=== PATIENT | female | born 1990 | race Two or more races ===

== ENCOUNTER 2017-01-01 17:14 | Inpatient (IN) | payer OTHER ==
[~2017-01-01] VITALS: Ht 154.9 cm; Wt 89.5 kg
[~2017-01-01 17:14] MED LIST: DOCU-109 PO; NAPR500T PO; OXYC-323 PO
[2017-01-01 17:39] LABS: BILIRUBIN,URINE NEGATIVE (NEG); GLUCOSE,URINE NEGATIVE (NEG); NITRITE,URINE NEGATIVE (NEG); PH,URINE 6.5; PROTEIN,URINE 100 mg/dL (NEG-TRACE); UROBILINOGEN,URINE 0.2 mg/dL (0.2 mg/dL)
--- NOTE | 2017-01-01 17:41 | PHYS DOC ---
Adult General Chief Complaint Chief Complaint: SHORTNESS OF BREATH HPI HPI Patient is a 26 year old F who presents with with increased shortness of breath and altered breathing that started this morning. Patient is 5 days for having a secondary to baby bradycardia down during labor. Patient released from the hospital on . Patient had an unremarkable no preeclampsia, no hypertension, no gestational diabetes. Patient has a JEB drain in place from her . Patient has no history of cardiac disease or PE or DVT. Patient states she's having increased with the walking from the couch the bathroom and notices that she is extremely short of breath and has increased respiratory rate. Patient denies any fevers. Patient states she's had increased swelling to her feet. Patient takes no medications currently. Pertinent exam findings: Heart is tachycardia with no murmurs Lungs decreased breath sounds bilaterally with tachypnea +2 pitting edema lower extremity bilaterally abdominal distention with incision looking clean dry and intact the JEB drain in place ED course: Patient was seen and examined CBC, CMP, troponin, BNP, EKG, UA, chest x-ray, CT angiogram was ordered, patient was 88% on room air therefore is placed on 2 L nasal cannula 1747: EKG shows sinus tach rate of 103 no STEMI 1930: On reexamination the patient is still tachypneic and having more difficulty breathing therefore the patient was placed on BiPAP, splint the patient we'll have to admit her to the hospital 1947: Discussed CC/HP/PMH with Dr. Mcdonald and recommends admit admitted to the [facility] with cardiology consult 1999: Discussed CC/HP/PMH with Dr. Hansen and recommends admit 40 mg of Lasix IV Pertinent results: Chest x-ray shows pulmonary edema CT angio IMPRESSION: 1. No CT evidence of central pulmonary emboli. 2. Bilateral patchy pulmonary infiltrates with interlobular septal thickening, most compatible with pulmonary edema. Pneumonia cannot be excluded. Small bilateral pleural effusions. BNP 599 Trop 0.054 MDM: After reviewing the chart, CC/HPI/PMH, physical exam, [lab results], [ radiological results], believe the patient has cardiomyopathy and is in acute failure with crying BiPAP and needs to be admitted hospital. Review of Systems Review of Systems GEN: Denies fevers, chills, sweats HEENT: Denies blurred vision, sore throat CV: Denies chest pain RESP: SOA GI: Denies n/v/d NEURO: Denies confusion, dizziness MSK: Denies weakness, joint pain/swelling Current Medications Current Medications Current Medications Medications (Trade) Dose Ordered Sig/Aaron Start Time Stop Time Status Last Admin Dose Admin Azithromycin 250 ml @ 250 mls/hr 1X ONCE 01/01/17 19:45 01/01/17 20:44 Ceftriaxone Sodium 1 gm/ Sodium Chloride 50 ml @ 100 mls/hr Q24H 01/02/17 18:00 Ceftriaxone Sodium 50 ml @ 100 mls/hr 1X ONCE 01/01/17 19:45 01/01/17 20:14 Info (Do NOT chart on this entry -- for MONITORING) 1 each PRN DAILY PRN 01/01/17 18:15 01/03/17 18:14 Iohexol (Omnipaque 300 Mg/ml) 75 ml 1X ONCE 01/01/17 18:00 01/01/17 18:02 DC 01/01/17 18:15 75 ML Morphine Sulfate 4 mg PRN Q2HR PRN 01/01/17 20:00 01/02/17 19:59 Ondansetron HCl (Zofran) 4 mg PRN Q8HRS PRN 01/01/17 20:00 01/02/17 19:59 Allergies Allergies Allergies Coded Allergies Type Severity Reaction Last Updated Verified No Known Drug Allergies 12/26/16 No Physical Exam Physical Exam GEN.: No apparent distress. Alert and oriented. HEENT: Head is normocephalic, atraumatic NECK: Supple. LUNGS: Decreased breath sounds bilaterally, tachypnea. HEART: [place], S1, S2 present. Peripheral pulses intact ABDOMEN: abdominal distention with incision looking clean dry and intact the JEB drain in place EXTREMITIES: Without any cyanosis. This 2 pitting edema to the extremity bilaterally NEUROLOGIC: Normal speech, normal tone PSYCHIATRIC: Normal affect, normal mood. SKIN: No ulcerations Current Patient Data Vital Signs Vital Signs Date Time Temp Pulse Resp B/P (MAP) Pulse Ox O2 Delivery O2 Flow Rate FiO2 01/01/17 19:30 116 25 129/76 (93) 96 Nasal Cannula 2.0 01/01/17 17:33 98.3 98.3 Lab Values Laboratory Tests Test 01/01/17 17:25 7/1/17 17:50 Urine Collection Type Unknown Urine Color [place] Urine Clarity Cloudy Urine pH 6.5 Urine Specific [place] <=1.005 Urine Protein 100 mg/dL (NEG-TRACE) Urine Glucose (UA) Negative mg/dL (NEG) Urine Ketones (Stick) Negative mg/dL (NEG) Urine Blood Large (NEG) Urine Nitrite Negative (NEG) Urine Bilirubin Negative (NEG) Urine Urobilinogen Dipstick 0.2 mg/dL (0.2 mg/dL) Urine Leukocyte Esterase Large (NEG) Urine RBC 20-40 /HPF (0-2) Urine WBC Tntc /HPF (0-4) Urine Squamous Epithelial Cells Many /LPF Urine Bacteria Many /HPF (0-FEW) Urine Mucus Mod /LPF White Blood Count 9.5 x10^3/uL (4.0-11.0) # Red Blood Count 3.50 x10^6/uL (3.50-5.40) Hemoglobin 8.2 g/dL (12.0-15.5) L Hematocrit 25.0 % (36.0-47.0) L Mean Corpuscular Volume 71 fL (79-100) L Mean Corpuscular Hemoglobin 24 pg (25-35) L Mean Corpuscular Hemoglobin Concent 33 g/dL (31-37) Red Cell Distribution Width 15.6 % (11.5-14.5) H Platelet Count 333 x10^3/uL (140-400) Neutrophils (%) (Auto) 79 % (31-73) H Lymphocytes (%) (Auto) 14 % (24-48) L Monocytes (%) (Auto) 6 % (0-9) Eosinophils (%) (Auto) 1 % (0-3) Basophils (%) (Auto) 0 % (0-3) Neutrophils # (Auto) 7.5 x10^3uL (1.8-7.7) Lymphocytes # (Auto) 1.3 x10^3/uL (1.0-4.8) Monocytes # (Auto) 0.6 x10^3/uL (0.0-1.1) Eosinophils # (Auto) 0.1 x10^3/uL (0.0-0.7) Basophils # (Auto) 0.0 x10^3/uL (0.0-0.2) Platelet Estimate Adequate (ADEQUATE) Polychromasia Slight Hypochromasia Slight Anisocytosis Slight Microcytosis Marked Sodium Level 144 mmol/L (136-145) Potassium Level 3.4 mmol/L (3.5-5.1) L Chloride Level 109 mmol/L (98-107) H Carbon Dioxide Level 24 mmol/L (21-32) Anion Gap 11 (6-14) Blood Urea Nitrogen 10 mg/dL (7-20) Creatinine 0.6 mg/dL (0.6-1.0) Estimated GFR (Cockcroft-Gault) 119.9 BUN/Creatinine Ratio 17 (6-20) Glucose Level 85 mg/dL (70-99) Calcium Level 8.1 mg/dL (8.5-10.1) L Total Bilirubin 0.3 mg/dL (0.2-1.0) Aspartate Amino Transferase (AST) 22 U/L (15-37) Alanine Aminotransferase (ALT) 16 U/L (14-59) Alkaline Phosphatase 95 U/L (46-116) Troponin I Quantitative 0.054 ng/mL (0.000-0.055) JT-Aby-R-Type Natriuretic Peptide 599 pg/mL (0-124) H Total Protein 6.7 g/dL (6.4-8.2) Albumin 2.6 g/dL (3.4-5.0) L Albumin/Globulin Ratio 0.6 (1.0-1.7) L Lipase 91 U/L (73-393) Laboratory Tests 01/01/17 17:50 Laboratory Tests 01/01/17 17:50 EKG EKG 1748: EKG shows sinus tach rate of 103 no STEMI[] Radiology/Procedures Radiology/Procedures CTA: IMPRESSION: 1. No CT evidence of central pulmonary emboli. 2. Bilateral patchy pulmonary infiltrates with interlobular septal thickening, most compatible with pulmonary edema. Pneumonia cannot be excluded. Small bilateral pleural effusions.[] Course & Med Decision Making Course & Med Decision Making Pertinent Labs and Imaging studies reviewed. (See chart for details) Critical care time was 35 minutes exclusive of procedures. [] Dragon Disclaimer Dragon Disclaimer This electronic medical record was generated, in whole or in part, using a voice recognition dictation system. Departure Departure Impression: Primary Impression: cardiomyopathy Disposition: 09 ADMITTED INPATIENT Admitting Physician: Other (Reusch) Condition: STABLE Referrals: NO PCP (PCP) MAREK LANDERS DO Jan 01, 2017 17:41
[2017-01-01 17:47] LABS: BACTERIA,URINE MANY /HPF (0-FEW); RBC,URINE 20-40 /HPF (0-2); SQUAMOUS EPITHELIAL CELL,UR MANY /LPF; WBC,URINE TNTC /HPF (0-4)
[2017-01-01] MEDS ORDERED: IOHEXOL 300 MG/ML 75 ML VIAL IV ONE (18:00)
[2017-01-01 18:02] LABS: BASO % 0 % (0-3); EOS % 1 % (0-3); HEMOGLOBIN 8.2 g/dL (12.0-15.5); LYMPH # 1.3 x10^3/uL (1.0-4.8); LYMPH % 14 % (24-48); MEAN CORPUSCULAR HEMOGLOBIN 24 pg (25-35); MEAN CORPUSCULAR HGB CONC 33 g/dL (31-37); MEAN CORPUSCULAR VOLUME 71 fL (79-100); MONO % 6 % (0-9); NEUT % 79 % (31-73); PLATELET COUNT 333 x10^3/uL (140-400); RED CELL DISTRIBUTION WIDTH 15.6 % (11.5-14.5); WHITE BLOOD COUNT 9.5 x10^3/uL (4.0-11.0)
[2017-01-01] MEDS ORDERED: CONTRAST GIVEN MC PRN (18:15)
[2017-01-01 18:20] LABS: ANISOCYTOSIS SLIGHT; HYPOCHROMIA SLIGHT; MICROCYTOSIS MARKED; PLT ESTIMATE ADEQUATE (ADEQUATE); POLYCHROMASIA SLIGHT
[2017-01-01 18:28] LABS: CALCIUM 8.1 mg/dL (8.5-10.1); CREATININE 0.6 mg/dL (0.6-1.0); GFR 119.9; POTASSIUM 3.4 mmol/L (3.5-5.1)
[2017-01-01 18:34] LABS: ALBUMIN 2.6 g/dL (3.4-5.0); ALBUMIN/GLOBULIN RATIO 0.6 (1.0-1.7); TOTAL BILIRUBIN 0.3 mg/dL (0.2-1.0); TOTAL PROTEIN 6.7 g/dL (6.4-8.2)
--- NOTE | 2017-01-01 18:41 | RAD ---
CTA of the chest with contrast, 01/01/2017: HISTORY: Shortness of breath, chest pain after a Multidetector CT imaging was performed following an IV bolus injection of iodinated contrast material. Multiplanar reconstructions were produced including coronal MIP images. The main, lobar and segmental pulmonary arteries are fairly well opacified and no filling defects are seen to suggest pulmonary emboli. Some of the smaller pulmonary arteries are less clearly defined. The thoracic aorta is of normal caliber. The heart is at the upper limits of normal in size. There is mild generalized thyroid enlargement. Small bilateral pleural effusions are present. There is interlobular septal thickening as well as patchy pulmonary infiltrates, right greater than left. These represent a combination of groundglass and slightly more dense scattered pulmonary opacities. The incompletely visualized spleen appears to be mildly prominent. IMPRESSION: 1. No CT evidence of central pulmonary emboli. 2. Bilateral patchy pulmonary infiltrates with interlobular septal thickening, most compatible with pulmonary edema. Pneumonia cannot be excluded. Small bilateral pleural effusions. Electronically signed by: Jaiden Hopper MD (01/01/2017 6:39 PM)
[2017-01-01] MEDS ORDERED: AZITHRMYCN 500MG IVPB FOR OMNI 250 ML IV ONE (19:45)
[2017-01-01] MEDS ORDERED: ONDANSETRON PF 4 MG/2 ML VIAL. IV PRN (20:00)
[2017-01-01] MEDS ORDERED: MORPHINE SULFATE 4 MG/ML DISP.SYRIN. IV PRN (20:00)
[2017-01-01] MEDS ORDERED: FUROSEMIDE 40 MG/4 ML VIAL. IVP ONE (20:00)
[2017-01-01 20:06] LABS: HCO3 ABG 21 mmol/L (21-28); PCO2 ABG 31 mmHg (35-46); PH ABG 7.46 (7.35-7.45); PO2 ABG 68 mmHg (85-108); SAT O2 ABG 92 % (92-99)
--- NOTE | 2017-01-01 21:02 | ACF ---
Admission Forms Criteria CARDIOLOGY GRG Clinical Indications for Admission to Inpatient Care ( Place 'X' for any and all applicable criteria): Hospital admission is needed for appropriate care of the patient because of ANY ONE of the following (1): [ ] I. Hemodynamic instability as indicated by ALL of the following (1)(2)(3) (4)(5) [ ]a) Vital signs or other findings not as expected for chronic patient condition or baseline [ ]b) Instability indicated by ANY ONE of the following: [ ]i) Hypotension [ ]ii) Symptomatic Tachycardia unresponsive to treatment ( e.g., analgesia, fluids, sedation as indicated) [ ]iii) Inadequate perfusion indicated by ANY ONE of the following: [ ] 1) Lactic acidosis (> 2 mmol/L) [ ] 2) New abnormal capillary refill (> 3 seconds) [ ] 3) Reduced urine output [ ] 4) New altered mental status [ ]iv) Orthostatic vital sign changes unresponsive to treatment (e.g., fluids) [ ]v) IV inotropic or vasopressor medication required to maintain adequate blood pressure or perfusion [ ] II. Severe heart failure as indicated by ANY ONE of the following(17)(18) [ ]a) Respiratory distress [ ]b) Hypotension [ ]c) Anasarca (refractory to outpatient therapy) [ ]d) Cardiac arrhythmias of immediate concern [ ]e) Myocardial ischemia [ ] III. Cardiac arrhythmias or findings of immediate concern indicated by ANY ONE of the following (19)(20): [ ] a) Heart rhythms that are inherently dangerous or unstable indicated by ANY ONE of the following (21)(22)(23): [ ] i) Resuscitated ventricular fibrillation or cardiac arrest [ ] ii) Ventricular escape rhythm [ ] iii) Sustained ventricular tachycardia (30 seconds or more of ventricular rhythm at greater than 100 beats per minute) [ ] iv) Nonsustained ventricular tachycardia and ANY ONE of the following: [ ] 1) Suspected cardiac ischemia as cause or consequence of ventricular tachycardia [ ] 2) In setting of acute myocarditis [ ] b) Unstable cardiac conduction defects indicated by ANY ONE of the following(23)(24)(25) [ ] i) Type II second-degree atrioventricular block [ ]ii) Third-degree atrioventricular block [ ]iii) New-onset left bundle branch block with suspected myocardial ischemia [ ]c) Any heart rhythm and ANY ONE of the following (21)(22)(26)(27) (28) [ ] i) Continuous long-term ECG monitoring needed (e.g., initiation of drug requiring monitoring for more than 24 hours) [ ] ii) Patient has automatic implanted cardioverter defibrillator that is repeatedly firing, malfunctioning, or in need of immediate adjustment of settings beyond the scope of ambulatory or observation care [ ]d) Heart rhythms of concern due to ANY ONE of the following: [ ] i) Hypotension [ ] ii) Respiratory distress [ ] iii) Association with other significant symptoms (e.g., bradycardia with syncope or ongoing dizziness, supraventricular tachycardia with chest pain (14)(15)(17) [ ] IV. Monitoring for cardiac contusion beyond the scope of observation care needed [A](30)(31)(32) [ ] V. Surgical or device complication (e.g., valve replacement complication , pacemaker dysfunction) (35)(41)(44)(45)(46) [ ] . Inpatient palliative care needed. [B](49) Also use Inpatient Palliative Care Criteria [ ] VII. Nonbacterial thrombotic (marantic) endocarditis (36)(43)(47)(48) [X] VIII. Cardiology condition, symptom, or finding for which emergency and observation care has failed or are not considered appropriate. [ ] IX. Acute valvular disease requiring inpatient as indicated by ANY ONE of the following (41) [ ]a) Acute valvular regurgitation (42) [ ]b) Noninfectious valvulitis (43) [ ]c) Obstructive valve thrombosis [ ]d) Paravalvular leak [ ]e) Other significant valvular disorder remaining after emergency or observation level of care (as appropriate) [ ]X. Pericardial disease requiring inpatient treatment as indicated by ANY ONE of the following (33)(34)(35)(36)(37) [ ]a) Suspected tamponade (38)(39)(40) [ ]b) Hemopericardium [ ]c) Other significant pericardial disorder remaining after emergency or observation level of care (as appropriate) [ ] XI. Cardiac ischemia beyond scope of emergency and observation care. [ ] XII. Hypertension requiring inpatient treatment as indicated by ANY ONE of the following (6)(7)(8) [ ]a) SBP greater than 220 mm Hg or DBP greater than 120 mmHg despite treatment [ ]b) SBP greater than 140 mm Hg or DBP greater than 100 mm Hg with evidence of acute end organ damage as indicated by ANY ONE of the following [ ] i) Encephalopathy [ ] ii) Acute renal failure as indicated by new onset of ANY ONE of the following (9)(10)(11)(12)(13) [ ]1) 3-fold rise in serum creatinine from baseline [ ]2) Serum creatinine greater than 4 mg/dL ( 354 micromoles/L) with acute rise greater than 0.5 mg/dL (44.2 micromoles/L) [ ]3) Reduction of more than 75% in estimated glomerular filtration rate from baseline [ ]4) Estimated glomerular filtration rate less than 35 mL/min/1.73m2 (0.59 mL/sec/1.73m2) in child up to 18 years of age [ ]5) Cessation of urine output indicated by ALL of the following [ ]A. Adequate volume status [ ]B. Inadequate urine output as indicated by ANY ONE of the following [ ]a. Urine output less than 0.3 mL/kg/hr for 24 hours [ ]b. Anuria (urine output less than 0.1 mL/kg/hr) for 12 hours [ ] iii) Aortic dissection [ ] iv) Myocardial Ischemia [ ] v) Left ventricular heart failure [ ]vi) Retinal Hemorrhage [ ]vii) Other significant finding [ ]c) Hypertension in child requiring inpatient treatment as indicated by ALL of the following(14)(15)(16) [ ] i) Outpatient treatment not effective, not available, or not appropriate [ ]ii) SBP or DBP greater than 95th percentile for age [ ]iii) Evidence of acute end organ damage as indicated by ANY ONE of the following [ ]1) Altered mental status [ ]2) Acute renal failure as indicated by new onset of ANY ONE of the following(9)(10)(11)(12)(13) [ ]A. 3-fold rise in serum creatinine from baseline [ ]B. Serum creatinine greater than 4 mg/dL (354 micromoles/L) with acute rise greater than 0.5 mg/dL (44.2 micromoles/L) [ ]C. Reduction of more than 75% in estimated glomerular filtration rate from baseline [ ]D. Estimated glomerular filtration rate less than 35 mL/min/1.73m2 (0.59 mL/sec/1.73m2) in child up to 18 years of age [ ]E. Cessation of urine output indicated by ALL of the following [ ]a. Adequate volume status [ ]b. Inadequate urine output as indicated by ANY ONE of the following [ ]i) Urine output less than 0.3 mL/kg/hr for 24 hours [ ]ii) Anuria ( urine output less than 0.1 mL/kg/hr) for 12 hours [ ]3) Severe headache [ ]4) Visual disturbance [ ]5) Retinal hemorrhage [ ]6) Other significant finding [ ]XIII. Complications of transplanted heart indicated by ANY ONE of the following(61): [ ]a) Acute graft rejection requiring inpatient management (eg, intravenous immunosuppression)(62)(63) [ ]b) Acute graft heart failure indicated by ANY ONE of the following(64): [ ]i) Hemodynamic instability [ ]ii) Cardiac arrhythmias of immediate concern [ ]iii) Pulmonary edema that is very severe (eg, mechanical ventilation needed, imminent or likely, need for 100% oxygen to keep oxygen saturation above 90%) [ ]iv) Pulmonary edema that is persistent as indicated by ALL of the following: [ ]1) New need for oxygen therapy to keep oxygen saturation above 90% (or increased FiO2 need from baseline) [ ]2) Has not improved sufficiently with emergency department or observation care IV diuretics or other heart failure treatments[E] [ ]v) Altered mental status that is severe or persistent [ ]vi) Increased creatinine (new on laboratory test) with reduction of more than 50% in estimated glomerular filtration rate from baseline [ ]vii) Progressively (ongoing) rising creatinine (known from past laboratory test) with reduction of more than 25% in estimated glomerular filtration rate from baseline [ ]viii) Acute renal failure [ ]ix) Acute peripheral ischemia (eg, examination shows pulseless, cool, mottled, or cyanotic extremity) [ ]x) Pulmonary artery catheter monitoring needed [ ]xi) Other sign or symptom of heart failure requiring inpatient treatment (ie, too severe or not responsive to outpatient and observation care treatment) [ ]c) Infection requiring inpatient management (eg, Hemodynamic instability, need for intravenous antimicrobial treatment)(66)(67)(68)(69)(70) [ ]d) Cardiac allograft vasculopathy requiring inpatient management ( eg evidence of cardiac ischemia)(71) [ ]e) Other complication of transplanted heart (eg, stroke, severe pulmonary hypertension, severe valvular dysfunction) requiring inpatient management(72) The original [facility] content created by [facility] has been revised. The portions of the content which have been revised are identified through the use of italic text or in bold, and [facility] has neither reviewed nor approved the modified material. All other unmodified content is copyright [facility]. Please see references footnoted in the original [facility] edition 2016 Admission Criteria Met?: Yes NIRALI PEREZ Jan 01, 2017 21:02
--- NOTE | 2017-01-01 21:09 | PDOC1 ---
History and Physical Date of Admission Date of Admission DATE: 01/01/17 TIME: 21:09 Identification/Chief Complaint Chief Complaint post cardiomyopathy Problems: Source Source: Patient History of Present Illness History of Present Illness Mrs Leos is a 38 y/o [place] without any medical issues, who delivered her first child by Cesarian 5 days ago. According to her, and delivery were uneventful. She went home, doing ok. She awoke this morning with increased work of breathing. She denies any cough or chest pain or palpitations , fevers, chill or nausea. [facility] over the past few days. In the ER, she was found with vascular congestion on CXR, as well as elevated proBNP and troponin. She is now admitted with a presumptive diagnosis of cardiomyopathy to [facility]. Past Medical History Past Medical History No medical history save for recent Past Surgical History Past Surgical History: Family History Family History: Heart Disease, Hypertension Social History Smoke: No ALCOHOL: none Drugs: None Current Problem List Problem List Problems Medical Problems: (1) cardiomyopathy Status: Acute Problems: Current Medications Current Medications Current Medications Iohexol (Omnipaque 300 Mg/ml) 75 ml 1X ONCE IV Last administered on 01/01/17t 18:15; Start 01/01/17 at 18:00; Stop 01/01/17 at 18:02; Status DC Info (Do NOT chart on this entry -- for MONITORING) 1 each PRN DAILY PRN MC SEE COMMENTS; Start 01/01/17 at 18:15; Stop 01/03/17 at 18:14 Ceftriaxone Sodium 1 gm/ Sodium Chloride 50 ml @ 100 mls/hr Q24H IV ; Start 01/01/17 at 19:45; Status Cancel Azithromycin 250 ml @ 250 mls/hr 1X ONCE IV ; Start 01/01/17 at 19:45; Stop 01/01/17 at 20:44; Status DC Ceftriaxone Sodium 1 gm/ Sodium Chloride 50 ml @ 100 mls/hr Q24H IV ; Start 01/02/17 at 18:00 Ceftriaxone Sodium 50 ml @ 100 mls/hr 1X ONCE IV Last administered on t 20:38; Start 01/01/17 at 19:45; Stop 01/01/17 at 20:14; Status DC Ondansetron HCl (Zofran) 4 mg PRN Q8HRS PRN IV NAUSEA/VOMITING; Start 01/01/17 at 20:00; Stop 01/02/17 at 19:59 Morphine Sulfate 4 mg PRN Q2HR PRN IV PAIN; Start 01/01/17 at 20:00; Stop at 19:59 Furosemide (Lasix) 40 mg 1X ONCE IVP Last administered on 01/01/17t 20:41; Start 01/01/17 at 20:00; Stop 01/01/17 at 20:03; Status DC Active Scripts Active Colace (Docusate Sodium) 100 Mg Capsule 1 Cap PO BID Percocet 5-325 Mg Tablet (Oxycodone/Acetaminophen) 1 Each Tablet 1-2 Tab PO Q4- 6HRS Naprosyn (Naproxen) 500 Mg Tablet 1 Tab PO BID Allergies Allergies: Coded Allergies: No Known Drug Allergies (Unverified , 12/26/16) ROS Review of System positive as per HPI. She deneis problems in rest of organ review Vitals Vitals Vital Signs Date Time Temp Pulse Resp B/P (MAP) Pulse Ox O2 Delivery O2 Flow Rate FiO2 01/01/17 20:34 108 26 152/97 (115) 95 Nasal Cannula 2.0 01/01/17 17:33 98.3 98.3 Labs Labs Laboratory Tests Test 01/01/17 17:25 01/01/17 17:50 01/01/17 20:00 Urine Collection Type Unknown Urine Color [place] Urine Clarity Cloudy Urine pH 6.5 Urine Specific [place] <=1.005 Urine Protein 100 mg/dL (NEG-TRACE) Urine Glucose (UA) Negative mg/dL (NEG) Urine Ketones (Stick) Negative mg/dL (NEG) Urine Blood Large (NEG) Urine Nitrite Negative (NEG) Urine Bilirubin Negative (NEG) Urine Urobilinogen Dipstick 0.2 mg/dL (0.2 mg/dL) Urine Leukocyte Esterase Large (NEG) Urine RBC 20-40 /HPF (0-2) Urine WBC Tntc /HPF (0-4) Urine Squamous Epithelial Cells Many /LPF Urine Bacteria Many /HPF (0-FEW) Urine Mucus Mod /LPF White Blood Count 9.5 x10^3/uL (4.0-11.0) Red Blood Count 3.50 x10^6/uL (3.50-5.40) Hemoglobin 8.2 g/dL (12.0-15.5) Hematocrit 25.0 % (36.0-47.0) Mean Corpuscular Volume 71 fL (79-100) Mean Corpuscular Hemoglobin 24 pg (25-35) Mean Corpuscular Hemoglobin Concent 33 g/dL (31-37) Red Cell Distribution Width 15.6 % (11.5-14.5) Platelet Count 333 x10^3/uL (140-400) Neutrophils (%) (Auto) 79 % (31-73) Lymphocytes (%) (Auto) 14 % (24-48) Monocytes (%) (Auto) 6 % (0-9) Eosinophils (%) (Auto) 1 % (0-3) Basophils (%) (Auto) 0 % (0-3) Neutrophils # (Auto) 7.5 x10^3uL (1.8-7.7) Lymphocytes # (Auto) 1.3 x10^3/uL (1.0-4.8) Monocytes # (Auto) 0.6 x10^3/uL (0.0-1.1) Eosinophils # (Auto) 0.1 x10^3/uL (0.0-0.7) Basophils # (Auto) 0.0 x10^3/uL (0.0-0.2) Platelet Estimate Adequate (ADEQUATE) Polychromasia Slight Hypochromasia Slight Anisocytosis Slight Microcytosis Marked Sodium Level 144 mmol/L (136-145) Potassium Level 3.4 mmol/L (3.5-5.1) Chloride Level 109 mmol/L (98-107) Carbon Dioxide Level 24 mmol/L (21-32) Anion Gap 11 (6-14) Blood Urea Nitrogen 10 mg/dL (7-20) Creatinine 0.6 mg/dL (0.6-1.0) Estimated GFR (Cockcroft-Gault) 119.9 BUN/Creatinine Ratio 17 (6-20) Glucose Level 85 mg/dL (70-99) Lactic Acid Level 1.0 mmol/L (0.4-2.0) Calcium Level 8.1 mg/dL (8.5-10.1) Total Bilirubin 0.3 mg/dL (0.2-1.0) Aspartate Amino Transf (AST/SGOT) 22 U/L (15-37) Alanine Aminotransferase (ALT/SGPT) 16 U/L (14-59) Alkaline Phosphatase 95 U/L (46-116) Troponin I Quantitative 0.054 ng/mL (0.000-0.055) KZ-Apm-N-Type Natriuretic Peptide 599 pg/mL (0-124) Total Protein 6.7 g/dL (6.4-8.2) Albumin 2.6 g/dL (3.4-5.0) Albumin/Globulin Ratio 0.6 (1.0-1.7) Lipase 91 U/L (73-393) O2 Saturation 92 % (92-99) Arterial Blood pH 7.46 (7.35-7.45) Arterial Blood pCO2 at Patient Temp 31 mmHg (35-46) Arterial Blood pO2 at Patient Temp 68 mmHg (85-108) Arterial Blood HCO3 21 mmol/L (21-28) Arterial Blood Base Excess -2 mmol/L (-3-3) Laboratory Tests Test 01/01/17 17:25 01/01/17 17:50 01/01/17 20:00 Urine Collection Type Unknown Urine Color [place] Urine Clarity Cloudy Urine pH 6.5 Urine Specific [place] <=1.005 Urine Protein 100 mg/dL (NEG-TRACE) Urine Glucose (UA) Negative mg/dL (NEG) Urine Ketones (Stick) Negative mg/dL (NEG) Urine Blood Large (NEG) Urine Nitrite Negative (NEG) Urine Bilirubin Negative (NEG) Urine Urobilinogen Dipstick 0.2 mg/dL (0.2 mg/dL) Urine Leukocyte Esterase Large (NEG) Urine RBC 20-40 /HPF (0-2) Urine WBC Tntc /HPF (0-4) Urine Squamous Epithelial Cells Many /LPF Urine Bacteria Many /HPF (0-FEW) Urine Mucus Mod /LPF White Blood Count 9.5 x10^3/uL (4.0-11.0) Red Blood Count 3.50 x10^6/uL (3.50-5.40) Hemoglobin 8.2 g/dL (12.0-15.5) Hematocrit 25.0 % (36.0-47.0) Mean Corpuscular Volume 71 fL (79-100) Mean Corpuscular Hemoglobin 24 pg (25-35) Mean Corpuscular Hemoglobin Concent 33 g/dL (31-37) Red Cell Distribution Width 15.6 % (11.5-14.5) Platelet Count 333 x10^3/uL (140-400) Neutrophils (%) (Auto) 79 % (31-73) Lymphocytes (%) (Auto) 14 % (24-48) Monocytes (%) (Auto) 6 % (0-9) Eosinophils (%) (Auto) 1 % (0-3) Basophils (%) (Auto) 0 % (0-3) Neutrophils # (Auto) 7.5 x10^3uL (1.8-7.7) Lymphocytes # (Auto) 1.3 x10^3/uL (1.0-4.8) Monocytes # (Auto) 0.6 x10^3/uL (0.0-1.1) Eosinophils # (Auto) 0.1 x10^3/uL (0.0-0.7) Basophils # (Auto) 0.0 x10^3/uL (0.0-0.2) Platelet Estimate Adequate (ADEQUATE) Polychromasia Slight Hypochromasia Slight Anisocytosis Slight Microcytosis Marked Sodium Level 144 mmol/L (136-145) Potassium Level 3.4 mmol/L (3.5-5.1) Chloride Level 109 mmol/L (98-107) Carbon Dioxide Level 24 mmol/L (21-32) Anion Gap 11 (6-14) Blood Urea Nitrogen 10 mg/dL (7-20) Creatinine 0.6 mg/dL (0.6-1.0) Estimated GFR (Cockcroft-Gault) 119.9 BUN/Creatinine Ratio 17 (6-20) Glucose Level 85 mg/dL (70-99) Lactic Acid Level 1.0 mmol/L (0.4-2.0) Calcium Level 8.1 mg/dL (8.5-10.1) Total Bilirubin 0.3 mg/dL (0.2-1.0) Aspartate Amino Transf (AST/SGOT) 22 U/L (15-37) Alanine Aminotransferase (ALT/SGPT) 16 U/L (14-59) Alkaline Phosphatase 95 U/L (46-116) Troponin I Quantitative 0.054 ng/mL (0.000-0.055) BT-Emb-B-Type Natriuretic Peptide 599 pg/mL (0-124) Total Protein 6.7 g/dL (6.4-8.2) Albumin 2.6 g/dL (3.4-5.0) Albumin/Globulin Ratio 0.6 (1.0-1.7) Lipase 91 U/L (73-393) O2 Saturation 92 % (92-99) Arterial Blood pH 7.46 (7.35-7.45) Arterial Blood pCO2 at Patient Temp 31 mmHg (35-46) Arterial Blood pO2 at Patient Temp 68 mmHg (85-108) Arterial Blood HCO3 21 mmol/L (21-28) Arterial Blood Base Excess -2 mmol/L (-3-3) VTE Prophylaxis Ordered VTE Prophylaxis Devices: No VTE Pharmacological Prophylaxi: Yes Assessment/Plan Assessment/Plan Mrs Leos is a 38 y/o [place] with cardiomyopathy. she is receiving IV lasix with good results. monitor closely in the CVC. cardiology consult will be obtained in the morning. Her potassium level is a tiny bit low prior to starting lasix treatment. Will replete aggressively, anticipating further drop with lasix. She actually has a wound vac over her incision. She was supposed to get is removed on Tue. obtain OB consult (Dr Berger) Condition: guarded. Prognosis: fair SEJAL GRAJEDA MD Jan 01, 2017 21:09
[2017-01-01 21:36] VITALS: BP 143/92
[2017-01-01 22:53] VITALS: BP 140/86
[2017-01-02] MEDS ORDERED: POTASSIUM CHLORIDE 20 MEQ TABLET.ER. PO ONE (00:15)
[2017-01-02] MEDS ORDERED: POTASSIUM CHLORIDE 10MEQ 100 ML IV SCH (00:30)
[2017-01-02] MEDS ORDERED: MAGNESIUM SULFATE 2GM 50 ML IV SCH ×2 (00:30→09:00)
[2017-01-02 03:36] VITALS: BP 141/94
[2017-01-02 07:00] VITALS: BP 146/100
[2017-01-02 08:16] LABS: BASO % 0 % (0-3); EOS % 1 % (0-3); HEMOGLOBIN 8.3 g/dL (12.0-15.5); LYMPH # 1.5 x10^3/uL (1.0-4.8); LYMPH % 13 % (24-48); MEAN CORPUSCULAR HEMOGLOBIN 24 pg (25-35); MEAN CORPUSCULAR HGB CONC 32 g/dL (31-37); MEAN CORPUSCULAR VOLUME 73 fL (79-100); MONO % 5 % (0-9); NEUT % 81 % (31-73); PLATELET COUNT 338 x10^3/uL (140-400); RED BLOOD COUNT 3.56 x10^6/uL (3.50-5.40); RED CELL DISTRIBUTION WIDTH 16.1 % (11.5-14.5); WHITE BLOOD COUNT 11.5 x10^3/uL (4.0-11.0)
[2017-01-02 08:50] LABS: CALCIUM 7.5 mg/dL (8.5-10.1); CREATININE 0.6 mg/dL (0.6-1.0); GFR 119.9; POTASSIUM 3.6 mmol/L (3.5-5.1)
[2017-01-02] MEDS ORDERED: POTASSIUM & SODIUM PHOSPHATES PACKET. PO SCH (09:00)
--- NOTE | 2017-01-02 09:16 | RAD ---
Portable chest, 01/01/2017: History: Shortness of breath The heart is mildly enlarged. The pulmonary vascularity is at the upper limits of normal. There is mild right basilar infiltrate partially obscuring the hemidiaphragm. Small pleural effusions evident on the subsequent CT study are not clearly visualized on this AP portable exam. There is no evidence of pneumothorax. IMPRESSION: 1. Mild cardiomegaly with borderline vascular congestion. 2. Mild right basilar infiltrate suggesting pneumonia versus pulmonary edema.
--- NOTE | 2017-01-02 10:34 | PDOC ---
PROGRESS NOTES Chief Complaint Chief Complaint SOB ASSESSMENT AND PLAN: 1. cardiomyopathy: cont IV lasix. echo pending. Dr Hansen to see 2. Hypokalemia: sl improved. replete aggressively with diuresis 3. Hypomagnesemia: new. replete IV 4. S/p last Mon, with wound vac in place. obtain OB consult (Dr Berger) Condition: guarded. Prognosis: fair Vitals Vitals Vital Signs Date Time Temp Pulse Resp B/P (MAP) Pulse Ox O2 Delivery O2 Flow Rate FiO2 01/02/17 07:00 98.3 102 18 146/100 (115) 96 Nasal Cannula 2.0 98.3 Physical Exam General: Alert, Oriented X3, Cooperative, No acute distress Heart: Regular rate Lungs: Clear Abdomen: Normal bowel sounds, Other ( abd with transverse , covered with wound vac) Extremities: Other (1+ LE edema) Labs LABS Laboratory Tests Test 01/01/17 17:25 01/01/17 17:50 01/01/17 20:00 01/01/17 22:30 Urine Collection Type Unknown Urine Color [place] Urine Clarity Cloudy Urine pH 6.5 Urine Specific [place] <=1.005 Urine Protein 100 mg/dL (NEG-TRACE) Urine Glucose (UA) Negative mg/dL (NEG) Urine Ketones (Stick) Negative mg/dL (NEG) Urine Blood Large (NEG) Urine Nitrite Negative (NEG) Urine Bilirubin Negative (NEG) Urine Urobilinogen Dipstick 0.2 mg/dL (0.2 mg/dL) Urine Leukocyte Esterase Large (NEG) Urine RBC 20-40 /HPF (0-2) Urine WBC Tntc /HPF (0-4) Urine Squamous Epithelial Cells Many /LPF Urine Bacteria Many /HPF (0-FEW) Urine Mucus Mod /LPF White Blood Count 9.5 x10^3/uL (4.0-11.0) Red Blood Count 3.50 x10^6/uL (3.50-5.40) Hemoglobin 8.2 g/dL (12.0-15.5) Hematocrit 25.0 % (36.0-47.0) Mean Corpuscular Volume 71 fL (79-100) Mean Corpuscular Hemoglobin 24 pg (25-35) Mean Corpuscular Hemoglobin Concent 33 g/dL (31-37) Red Cell Distribution Width 15.6 % (11.5-14.5) Platelet Count 333 x10^3/uL (140-400) Neutrophils (%) (Auto) 79 % (31-73) Lymphocytes (%) (Auto) 14 % (24-48) Monocytes (%) (Auto) 6 % (0-9) Eosinophils (%) (Auto) 1 % (0-3) Basophils (%) (Auto) 0 % (0-3) Neutrophils # (Auto) 7.5 x10^3uL (1.8-7.7) Lymphocytes # (Auto) 1.3 x10^3/uL (1.0-4.8) Monocytes # (Auto) 0.6 x10^3/uL (0.0-1.1) Eosinophils # (Auto) 0.1 x10^3/uL (0.0-0.7) Basophils # (Auto) 0.0 x10^3/uL (0.0-0.2) Platelet Estimate Adequate (ADEQUATE) Polychromasia Slight Hypochromasia Slight Anisocytosis Slight Microcytosis Marked Sodium Level 144 mmol/L (136-145) Potassium Level 3.4 mmol/L (3.5-5.1) Chloride Level 109 mmol/L (98-107) Carbon Dioxide Level 24 mmol/L (21-32) Anion Gap 11 (6-14) Blood Urea Nitrogen 10 mg/dL (7-20) Creatinine 0.6 mg/dL (0.6-1.0) Estimated GFR (Cockcroft-Gault) 119.9 BUN/Creatinine Ratio 17 (6-20) Glucose Level 85 mg/dL (70-99) Lactic Acid Level 1.0 mmol/L (0.4-2.0) 0.9 mmol/L (0.4-2.0) Calcium Level 8.1 mg/dL (8.5-10.1) Total Bilirubin 0.3 mg/dL (0.2-1.0) Aspartate Amino Transf (AST/SGOT) 22 U/L (15-37) Alanine Aminotransferase (ALT/SGPT) 16 U/L (14-59) Alkaline Phosphatase 95 U/L (46-116) Troponin I Quantitative 0.054 ng/mL (0.000-0.055) QW-Dav-R-Type Natriuretic Peptide 599 pg/mL (0-124) Total Protein 6.7 g/dL (6.4-8.2) Albumin 2.6 g/dL (3.4-5.0) Albumin/Globulin Ratio 0.6 (1.0-1.7) Lipase 91 U/L (73-393) O2 Saturation 92 % (92-99) Arterial Blood pH 7.46 (7.35-7.45) Arterial Blood pCO2 at Patient Temp 31 mmHg (35-46) Arterial Blood pO2 at Patient Temp 68 mmHg (85-108) Arterial Blood HCO3 21 mmol/L (21-28) Arterial Blood Base Excess -2 mmol/L (-3-3) Test 01/02/17 07:50 White Blood Count 11.5 x10^3/uL (4.0-11.0) Red Blood Count 3.56 x10^6/uL (3.50-5.40) Hemoglobin 8.3 g/dL (12.0-15.5) Hematocrit 26.0 % (36.0-47.0) Mean Corpuscular Volume 73 fL (79-100) Mean Corpuscular Hemoglobin 24 pg (25-35) Mean Corpuscular Hemoglobin Concent 32 g/dL (31-37) Red Cell Distribution Width 16.1 % (11.5-14.5) Platelet Count 338 x10^3/uL (140-400) Neutrophils (%) (Auto) 81 % (31-73) Lymphocytes (%) (Auto) 13 % (24-48) Monocytes (%) (Auto) 5 % (0-9) Eosinophils (%) (Auto) 1 % (0-3) Basophils (%) (Auto) 0 % (0-3) Neutrophils # (Auto) 9.4 x10^3uL (1.8-7.7) Lymphocytes # (Auto) 1.5 x10^3/uL (1.0-4.8) Monocytes # (Auto) 0.6 x10^3/uL (0.0-1.1) Eosinophils # (Auto) 0.1 x10^3/uL (0.0-0.7) Basophils # (Auto) 0.0 x10^3/uL (0.0-0.2) Sodium Level 141 mmol/L (136-145) Potassium Level 3.6 mmol/L (3.5-5.1) Chloride Level 109 mmol/L (98-107) Carbon Dioxide Level 25 mmol/L (21-32) Anion Gap 7 (6-14) Blood Urea Nitrogen 11 mg/dL (7-20) Creatinine 0.6 mg/dL (0.6-1.0) Estimated GFR (Cockcroft-Gault) 119.9 Glucose Level 79 mg/dL (70-99) Calcium Level 7.5 mg/dL (8.5-10.1) Phosphorus Level 3.6 mg/dL (2.6-4.7) Magnesium Level 1.7 mg/dL (1.8-2.4) Troponin I Quantitative 0.060 ng/mL (0.000-0.055) SEJAL GRAJEDA MD Jan 02, 2017 10:34
[2017-01-02 11:00] VITALS: BP 153/83
--- NOTE | 2017-01-02 11:42 | EKG ---
[facility] [address] [place] [address] Test Date: 2017-01-01 Test Time: 17:45:26 Pat Name: MITESH DAMON Department: Room: 208 1 Gender: F Muffler Installer: SHAYE : 1990 Requested By: MAREK LANDERS Order Number: [id number] Reading MD: Mack Nayak Measurements Intervals [place] Rate: 103 P: 37 MO: 144 QRS: 52 QRSD: 86 T: 31 QT: 344 QTc: 453 Interpretive Statements SINUS TACHYCARDIA QRS(T) CONTOUR ABNORMALITY POSSIBLY ABNORMAL ECG RI6.01 No previous ECG available for comparison Electronically Signed On 01-02-2017 15:50:41 CDT by Mack Nayak
--- NOTE | 2017-01-02 13:53 | PDOC2 ---
CONSULT Date of Consult Date of Consult DATE: 01/02/17 TIME: 13:47 Reason for Consult Reason for Consult: Probable heart failure Referring Physician Referring Physician: Dr. Mcdonald Identification/Chief Complaint Chief Complaint Shortness of breath Problems: Source Source: Patient History of Present Illness Reason for Visit: The patient is a 26-year-old female 5 days status post her first . Patient reported a non-complicated and a C section delivery. She had been doing well until yesterday morning when she developed increasing shortness of breath. She had no chest pain. She came to the emergency room and initial evaluation included a CT scan that showed no pulmonary emboli but probable pulmonary edema. Troponin level was 0.06. Potassium 3.6. Magnesium 1.7. EKG showed a sinus tachycardia with nonspecific ST-T wave changes. Patient was treated with Lasix and overnight the patient is feeling much better. She denies any history of heart failure, cardiac arrhythmias or coronary artery disease. She denies any family history of cardiomyopathy. Past Medical History Cardiovascular: HTN Past Surgical History Past Surgical History: Family History Family History: Heart Disease, Hypertension Social History No ALCOHOL: none Drugs: None Current Problem List Problem List Problems Medical Problems: (1) cardiomyopathy Status: Acute Current Medications Current Medications Current Medications Iohexol (Omnipaque 300 Mg/ml) 75 ml 1X ONCE IV Last administered on 01/01/17 18:15; Start 01/01/17 at 18:00; Stop 01/01/17 at 18:02; Status DC Info (Do NOT chart on this entry -- for MONITORING) 1 each PRN DAILY PRN MC SEE COMMENTS; Start 01/01/17 at 18:15; Stop 01/03/17 at 18:14 Ceftriaxone Sodium 1 gm/ Sodium Chloride 50 ml @ 100 mls/hr Q24H IV ; Start 01/01/17 at 19:45; Status Cancel Azithromycin 250 ml @ 250 mls/hr 1X ONCE IV Last administered on 01/02/17 00: 54; Start 01/01/17 at 19:45; Stop 01/01/17 at 20:44; Status DC Ceftriaxone Sodium 1 gm/ Sodium Chloride 50 ml @ 100 mls/hr Q24H IV ; Start 01/02/17 at 18:00 Ceftriaxone Sodium 50 ml @ 100 mls/hr 1X ONCE IV Last administered on 20:38; Start 01/01/17 at 19:45; Stop 01/01/17 at 20:14; Status DC Ondansetron HCl (Zofran) 4 mg PRN Q8HRS PRN IV NAUSEA/VOMITING; Start 01/01/17 at 20:00; Stop 01/02/17 at 19:59 Morphine Sulfate 4 mg PRN Q2HR PRN IV PAIN; Start 01/01/17 at 20:00; Stop at 19:59 Furosemide (Lasix) 40 mg 1X ONCE IVP Last administered on 01/01/17 20:41; Start 01/01/17 at 20:00; Stop 01/01/17 at 20:03; Status DC Potassium Chloride (Klor-Con) 40 meq 1X ONCE PO Last administered on 01/02/17 00:54; Start 01/02/17 at 00:15; Stop 01/02/17 at 00:16; Status DC Potassium Chloride 100 ml @ 100 mls/hr Q1H IV ; Start 01/02/17 at 00:30; Stop at 00:41; Status DC Magnesium Sulfate/ Dextrose 50 ml @ 25 mls/hr Q24H IV ; Start 01/02/17 at 00:30; Stop 01/02/17 at 00:46; Status DC Potassium Phos/ Sodium Phos (Phos-Nak) 1 pkt BID PO ; Start 01/02/17 at 09:00; Stop 01/02/17 at 21:01 Magnesium Sulfate/ Dextrose 50 ml @ 25 mls/hr Q24H IV Last administered on 12:36; Start 01/02/17 at 09:00; Stop 01/04/17 at 10:59 Active Scripts Active Colace (Docusate Sodium) 100 Mg Capsule 1 Cap PO BID Percocet 5-325 Mg Tablet (Oxycodone/Acetaminophen) 1 Each Tablet 1-2 Tab PO Q4- 6HRS Naprosyn (Naproxen) 500 Mg Tablet 1 Tab PO BID Allergies Allergies: Coded Allergies: No Known Drug Allergies (Unverified , 12/26/16) ROS General: YES: Fatigue Respiratory: YES: Shortness of breath, SOB with excertion Physical Exam General: mild distress HEENT: Atraumatic Lungs: Other (bilaterally mildly decreased breath sounds) Heart: Regular rate Abdomen: Normal bowel sounds Vitals VITALS Vital Signs Date Time Temp Pulse Resp B/P (MAP) Pulse Ox O2 Delivery O2 Flow Rate FiO2 01/02/17 11:00 98.5 96 20 153/83 (106) 97 Nasal Cannula 2.0 98.5 Labs Labs Laboratory Tests Test 01/01/17 17:25 01/01/17 17:50 01/01/17 20:00 01/01/17 22:30 Urine Collection Type Unknown Urine Color [place] Urine Clarity Cloudy Urine pH 6.5 Urine Specific [place] <=1.005 Urine Protein 100 mg/dL (NEG-TRACE) Urine Glucose (UA) Negative mg/dL (NEG) Urine Ketones (Stick) Negative mg/dL (NEG) Urine Blood Large (NEG) Urine Nitrite Negative (NEG) Urine Bilirubin Negative (NEG) Urine Urobilinogen Dipstick 0.2 mg/dL (0.2 mg/dL) Urine Leukocyte Esterase Large (NEG) Urine RBC 20-40 /HPF (0-2) Urine WBC Tntc /HPF (0-4) Urine Squamous Epithelial Cells Many /LPF Urine Bacteria Many /HPF (0-FEW) Urine Mucus Mod /LPF White Blood Count 9.5 x10^3/uL (4.0-11.0) Red Blood Count 3.50 x10^6/uL (3.50-5.40) Hemoglobin 8.2 g/dL (12.0-15.5) Hematocrit 25.0 % (36.0-47.0) Mean Corpuscular Volume 71 fL (79-100) Mean Corpuscular Hemoglobin 24 pg (25-35) Mean Corpuscular Hemoglobin Concent 33 g/dL (31-37) Red Cell Distribution Width 15.6 % (11.5-14.5) Platelet Count 333 x10^3/uL (140-400) Neutrophils (%) (Auto) 79 % (31-73) Lymphocytes (%) (Auto) 14 % (24-48) Monocytes (%) (Auto) 6 % (0-9) Eosinophils (%) (Auto) 1 % (0-3) Basophils (%) (Auto) 0 % (0-3) Neutrophils # (Auto) 7.5 x10^3uL (1.8-7.7) Lymphocytes # (Auto) 1.3 x10^3/uL (1.0-4.8) Monocytes # (Auto) 0.6 x10^3/uL (0.0-1.1) Eosinophils # (Auto) 0.1 x10^3/uL (0.0-0.7) Basophils # (Auto) 0.0 x10^3/uL (0.0-0.2) Platelet Estimate Adequate (ADEQUATE) Polychromasia Slight Hypochromasia Slight Anisocytosis Slight Microcytosis Marked Sodium Level 144 mmol/L (136-145) Potassium Level 3.4 mmol/L (3.5-5.1) Chloride Level 109 mmol/L (98-107) Carbon Dioxide Level 24 mmol/L (21-32) Anion Gap 11 (6-14) Blood Urea Nitrogen 10 mg/dL (7-20) Creatinine 0.6 mg/dL (0.6-1.0) Estimated GFR (Cockcroft-Gault) 119.9 BUN/Creatinine Ratio 17 (6-20) Glucose Level 85 mg/dL (70-99) Lactic Acid Level 1.0 mmol/L (0.4-2.0) 0.9 mmol/L (0.4-2.0) Calcium Level 8.1 mg/dL (8.5-10.1) Total Bilirubin 0.3 mg/dL (0.2-1.0) Aspartate Amino Transf (AST/SGOT) 22 U/L (15-37) Alanine Aminotransferase (ALT/SGPT) 16 U/L (14-59) Alkaline Phosphatase 95 U/L (46-116) Troponin I Quantitative 0.054 ng/mL (0.000-0.055) IF-Sqh-T-Type Natriuretic Peptide 599 pg/mL (0-124) Total Protein 6.7 g/dL (6.4-8.2) Albumin 2.6 g/dL (3.4-5.0) Albumin/Globulin Ratio 0.6 (1.0-1.7) Lipase 91 U/L (73-393) O2 Saturation 92 % (92-99) Arterial Blood pH 7.46 (7.35-7.45) Arterial Blood pCO2 at Patient Temp 31 mmHg (35-46) Arterial Blood pO2 at Patient Temp 68 mmHg (85-108) Arterial Blood HCO3 21 mmol/L (21-28) Arterial Blood Base Excess -2 mmol/L (-3-3) Test 01/02/17 07:50 White Blood Count 11.5 x10^3/uL (4.0-11.0) Red Blood Count 3.56 x10^6/uL (3.50-5.40) Hemoglobin 8.3 g/dL (12.0-15.5) Hematocrit 26.0 % (36.0-47.0) Mean Corpuscular Volume 73 fL (79-100) Mean Corpuscular Hemoglobin 24 pg (25-35) Mean Corpuscular Hemoglobin Concent 32 g/dL (31-37) Red Cell Distribution Width 16.1 % (11.5-14.5) Platelet Count 338 x10^3/uL (140-400) Neutrophils (%) (Auto) 81 % (31-73) Lymphocytes (%) (Auto) 13 % (24-48) Monocytes (%) (Auto) 5 % (0-9) Eosinophils (%) (Auto) 1 % (0-3) Basophils (%) (Auto) 0 % (0-3) Neutrophils # (Auto) 9.4 x10^3uL (1.8-7.7) Lymphocytes # (Auto) 1.5 x10^3/uL (1.0-4.8) Monocytes # (Auto) 0.6 x10^3/uL (0.0-1.1) Eosinophils # (Auto) 0.1 x10^3/uL (0.0-0.7) Basophils # (Auto) 0.0 x10^3/uL (0.0-0.2) Sodium Level 141 mmol/L (136-145) Potassium Level 3.6 mmol/L (3.5-5.1) Chloride Level 109 mmol/L (98-107) Carbon Dioxide Level 25 mmol/L (21-32) Anion Gap 7 (6-14) Blood Urea Nitrogen 11 mg/dL (7-20) Creatinine 0.6 mg/dL (0.6-1.0) Estimated GFR (Cockcroft-Gault) 119.9 Glucose Level 79 mg/dL (70-99) Calcium Level 7.5 mg/dL (8.5-10.1) Phosphorus Level 3.6 mg/dL (2.6-4.7) Magnesium Level 1.7 mg/dL (1.8-2.4) Troponin I Quantitative 0.060 ng/mL (0.000-0.055) Laboratory Tests Test 01/01/17 17:25 01/01/17 17:50 01/01/17 20:00 01/01/17 22:30 Urine Collection Type Unknown Urine Color [place] Urine Clarity Cloudy Urine pH 6.5 Urine Specific [place] <=1.005 Urine Protein 100 mg/dL (NEG-TRACE) Urine Glucose (UA) Negative mg/dL (NEG) Urine Ketones (Stick) Negative mg/dL (NEG) Urine Blood Large (NEG) Urine Nitrite Negative (NEG) Urine Bilirubin Negative (NEG) Urine Urobilinogen Dipstick 0.2 mg/dL (0.2 mg/dL) Urine Leukocyte Esterase Large (NEG) Urine RBC 20-40 /HPF (0-2) Urine WBC Tntc /HPF (0-4) Urine Squamous Epithelial Cells Many /LPF Urine Bacteria Many /HPF (0-FEW) Urine Mucus Mod /LPF White Blood Count 9.5 x10^3/uL (4.0-11.0) Red Blood Count 3.50 x10^6/uL (3.50-5.40) Hemoglobin 8.2 g/dL (12.0-15.5) Hematocrit 25.0 % (36.0-47.0) Mean Corpuscular Volume 71 fL (79-100) Mean Corpuscular Hemoglobin 24 pg (25-35) Mean Corpuscular Hemoglobin Concent 33 g/dL (31-37) Red Cell Distribution Width 15.6 % (11.5-14.5) Platelet Count 333 x10^3/uL (140-400) Neutrophils (%) (Auto) 79 % (31-73) Lymphocytes (%) (Auto) 14 % (24-48) Monocytes (%) (Auto) 6 % (0-9) Eosinophils (%) (Auto) 1 % (0-3) Basophils (%) (Auto) 0 % (0-3) Neutrophils # (Auto) 7.5 x10^3uL (1.8-7.7) Lymphocytes # (Auto) 1.3 x10^3/uL (1.0-4.8) Monocytes # (Auto) 0.6 x10^3/uL (0.0-1.1) Eosinophils # (Auto) 0.1 x10^3/uL (0.0-0.7) Basophils # (Auto) 0.0 x10^3/uL (0.0-0.2) Platelet Estimate Adequate (ADEQUATE) Polychromasia Slight Hypochromasia Slight Anisocytosis Slight Microcytosis Marked Sodium Level 144 mmol/L (136-145) Potassium Level 3.4 mmol/L (3.5-5.1) Chloride Level 109 mmol/L (98-107) Carbon Dioxide Level 24 mmol/L (21-32) Anion Gap 11 (6-14) Blood Urea Nitrogen 10 mg/dL (7-20) Creatinine 0.6 mg/dL (0.6-1.0) Estimated GFR (Cockcroft-Gault) 119.9 BUN/Creatinine Ratio 17 (6-20) Glucose Level 85 mg/dL (70-99) Lactic Acid Level 1.0 mmol/L (0.4-2.0) 0.9 mmol/L (0.4-2.0) Calcium Level 8.1 mg/dL (8.5-10.1) Total Bilirubin 0.3 mg/dL (0.2-1.0) Aspartate Amino Transf (AST/SGOT) 22 U/L (15-37) Alanine Aminotransferase (ALT/SGPT) 16 U/L (14-59) Alkaline Phosphatase 95 U/L (46-116) Troponin I Quantitative 0.054 ng/mL (0.000-0.055) YB-Iuw-O-Type Natriuretic Peptide 599 pg/mL (0-124) Total Protein 6.7 g/dL (6.4-8.2) Albumin 2.6 g/dL (3.4-5.0) Albumin/Globulin Ratio 0.6 (1.0-1.7) Lipase 91 U/L (73-393) O2 Saturation 92 % (92-99) Arterial Blood pH 7.46 (7.35-7.45) Arterial Blood pCO2 at Patient Temp 31 mmHg (35-46) Arterial Blood pO2 at Patient Temp 68 mmHg (85-108) Arterial Blood HCO3 21 mmol/L (21-28) Arterial Blood Base Excess -2 mmol/L (-3-3) Test 01/02/17 07:50 White Blood Count 11.5 x10^3/uL (4.0-11.0) Red Blood Count 3.56 x10^6/uL (3.50-5.40) Hemoglobin 8.3 g/dL (12.0-15.5) Hematocrit 26.0 % (36.0-47.0) Mean Corpuscular Volume 73 fL (79-100) Mean Corpuscular Hemoglobin 24 pg (25-35) Mean Corpuscular Hemoglobin Concent 32 g/dL (31-37) Red Cell Distribution Width 16.1 % (11.5-14.5) Platelet Count 338 x10^3/uL (140-400) Neutrophils (%) (Auto) 81 % (31-73) Lymphocytes (%) (Auto) 13 % (24-48) Monocytes (%) (Auto) 5 % (0-9) Eosinophils (%) (Auto) 1 % (0-3) Basophils (%) (Auto) 0 % (0-3) Neutrophils # (Auto) 9.4 x10^3uL (1.8-7.7) Lymphocytes # (Auto) 1.5 x10^3/uL (1.0-4.8) Monocytes # (Auto) 0.6 x10^3/uL (0.0-1.1) Eosinophils # (Auto) 0.1 x10^3/uL (0.0-0.7) Basophils # (Auto) 0.0 x10^3/uL (0.0-0.2) Sodium Level 141 mmol/L (136-145) Potassium Level 3.6 mmol/L (3.5-5.1) Chloride Level 109 mmol/L (98-107) Carbon Dioxide Level 25 mmol/L (21-32) Anion Gap 7 (6-14) Blood Urea Nitrogen 11 mg/dL (7-20) Creatinine 0.6 mg/dL (0.6-1.0) Estimated GFR (Cockcroft-Gault) 119.9 Glucose Level 79 mg/dL (70-99) Calcium Level 7.5 mg/dL (8.5-10.1) Phosphorus Level 3.6 mg/dL (2.6-4.7) Magnesium Level 1.7 mg/dL (1.8-2.4) Troponin I Quantitative 0.060 ng/mL (0.000-0.055) Images Images CT scan shows normal pulmonary emboli. It does show probable pulmonary edema. Assessment/Plan Assessment/Plan 1. Heart failure probably secondary to cardiomyopathy. Patient is significantly improved with Lasix. CT scan shows no evidence of pulmonary emboli. At this time will continue on Lasix and close monitoring. We'll check an echocardiogram today. Possibility of cardiomyopathy was discussed with the patient. 2. Status post delivery 5 days ago. Patient overall is doing well. Thank you for allowing us to participate in the care of your pleasant patient. KAITLIN DAVIES MD Jan 02, 2017 13:53
[2017-01-02 15:00] VITALS: BP 146/94
[2017-01-02] MEDS: FUROSEMIDE 20 MG/2 ML VIAL. IVP SCH (15:28)
[2017-01-02] MEDS: oxyCODONE/APAP 5/325 1 TAB TABLET PO PRN ×2 (15:29→19:45)
--- NOTE | 2017-01-02 15:40 | CARD ---
APPROVED REPORT EXAM: Two-dimensional and M-mode echocardiogram with Doppler and color Doppler. Other Information Quality : GoodHR: 104bpm Rhythm : Tachycardia INDICATION SOA, Tachycardia 2D DIMENSIONS RVDd2.9 (2.9-3.5cm)Left Atrium(2D)4.8 (1.6-4.0cm) IVSd0.9 (0.7-1.1cm)Aortic Root(2D)3.5 (2.0-3.7cm) LVDd6.0 (3.9-5.9cm)LVOT Diameter2.3 (1.8-2.4cm) PWd0.9 (0.7-1.1cm)LVDs4.9 (2.5-4.0cm) FS (%) 19.2 %SV70.5 ml Mitral Valve MV E Chigmlgr922.1cm/sMV E Peak Gr.6mmHg MV DECEL [id number] A Zgxflbzh238.2cm/s MV E Mean Gr.3mmHgE/A Ratio1.2 MV A [id number] Pulmonary Valve PV Peak Ihagovtv717.8cm/s Pulmonary Vein S1 Xlmdnjwa80.7cm/sD2 Nbukebzi62.7cm/s LEFT VENTRICLE The Left Ventricle is mildly dilated. There is normal left ventricular wall thickness. Left ventricle systolic function is mildly impaired. The Ejection Fraction is estimated at 40%. There is mild globa l hypokinesis of the left ventricle. The left ventricular diastolic function and filling is normal fo r age. No left ventricle thrombus noted on this study. RIGHT VENTRICLE The right ventricle is normal size. There is normal right ventricular wall thickness. The right ventr icular systolic function is normal. ATRIA The left atrium is mildly dilated. The right atrium size is normal. The interatrial septum is intact with no evidence for an atrial septal defect or patent foramen ovale as noted on 2-D or Doppler imagi ng. AORTIC VALVE The aortic valve is normal in structure and function. The aortic valve is trileaflet. Doppler and Col or Flow revealed no significant aortic regurgitation. There is no significant aortic valvular stenosi s. MITRAL VALVE There is no evidence of mitral valve prolapse. There is no mitral valve stenosis. Doppler and Color F low revealed mild mitral regurgitation. TRICUSPID VALVE Doppler and Color Flow revealed trace tricuspid valve regurgitation. PULMONIC VALVE Doppler and Color Flow revealed mild pulmonic valvular regurgitation. There is no pulmonic valvular s tenosis. GREAT VESSELS The aortic root is mildly enlarged. The ascending aorta is midly dilated. The pulmonary artery is nor mal. The IVC is normal in size and collapses >50% with inspiration. PERICARDIAL EFFUSION There is no evidence of significant pericardial effusion. Critical Notification Critical Value: No <Conclusion> The Left Ventricle is mildly dilated. Left ventricle systolic function is mildly impaired. The Ejection Fraction is estimated at 40%. There is mild global hypokinesis of the left ventricle. There is no significant aortic valvular stenosis. Doppler and Color Flow revealed no significant aortic regurgitation. Doppler and Color Flow revealed mild mitral regurgitation. Doppler and Color Flow revealed trace tricuspid valve regurgitation. Doppler and Color Flow revealed mild pulmonic valvular regurgitation. The aortic root is mildly enlarged. There is no evidence of significant pericardial effusion.
[2017-01-02] MEDS: POTASSIUM CHLORIDE 20 MEQ TABLET.ER. PO SCH (18:27)
[2017-01-02 19:15] VITALS: BP 132/88
[2017-01-02 22:57] VITALS: BP 130/84
[2017-01-03 02:48] VITALS: BP 141/93
[2017-01-03 07:00] VITALS: BP 153/90
[2017-01-03] MEDS: POTASSIUM CHLORIDE 20 MEQ TABLET.ER. PO SCH (08:40)
[2017-01-03] MEDS: FUROSEMIDE 20 MG/2 ML VIAL. IVP SCH (08:41)
[2017-01-03] MEDS: oxyCODONE/APAP 5/325 1 TAB TABLET PO PRN ×2 (08:46→14:50)
[2017-01-03] MEDS ORDERED: ENOXAPARIN 40 MG/0.4 ML SYRINGE. SQ SCH (09:00)
[2017-01-03 09:20] LABS: BASO # 0.1 x10^3/uL (0.0-0.2); BASO % 0 % (0-3); EOS % 2 % (0-3); HEMATOCRIT 29.1 % (36.0-47.0); HEMOGLOBIN 9.4 g/dL (12.0-15.5); LYMPH # 1.7 x10^3/uL (1.0-4.8); LYMPH % 14 % (24-48); MEAN CORPUSCULAR HEMOGLOBIN 23 pg (25-35); MEAN CORPUSCULAR HGB CONC 32 g/dL (31-37); MEAN CORPUSCULAR VOLUME 72 fL (79-100); MONO % 4 % (0-9); NEUT % 80 % (31-73); PLATELET COUNT 415 x10^3/uL (140-400); RED BLOOD COUNT 4.05 x10^6/uL (3.50-5.40); WHITE BLOOD COUNT 12.5 x10^3/uL (4.0-11.0)
[2017-01-03 09:42] LABS: CALCIUM 8.2 mg/dL (8.5-10.1); CREATININE 0.6 mg/dL (0.6-1.0); GFR 119.9; POTASSIUM 3.5 mmol/L (3.5-5.1)
[2017-01-03 11:00] VITALS: BP 136/89
--- NOTE | 2017-01-03 12:19 | PDOC ---
CARDIO Progress Notes Date and Time Date of Service 01/03/17 Time of Evaluation 1215 Subjective Subjective: No Chest Pain, No shortness of breath, No Palpitations Vitals Vitals Vital Signs Date Time Temp Pulse Resp B/P (MAP) Pulse Ox O2 Delivery O2 Flow Rate FiO2 01/03/17 11:00 98.5 98 18 136/89 (105) 97 Nasal Cannula 2.0 98.5 Weight Weight [ ] Input and Output Intake and Output Intake and Output 01/03/17 07:00 Intake Total 1760 ml Output Total 3 ml Balance 1757 ml Intake Oral 1760 ml Output Urine Total 3 ml # Voids 3 # Bowel Movements 1 Laboratory Labs Laboratory Tests Test 01/03/17 09:02 White Blood Count 12.5 x10^3/uL (4.0-11.0) Red Blood Count 4.05 x10^6/uL (3.50-5.40) Hemoglobin 9.4 g/dL (12.0-15.5) Hematocrit 29.1 % (36.0-47.0) Mean Corpuscular Volume 72 fL (79-100) Mean Corpuscular Hemoglobin 23 pg (25-35) Mean Corpuscular Hemoglobin Concent 32 g/dL (31-37) Red Cell Distribution Width 16.0 % (11.5-14.5) Platelet Count 415 x10^3/uL (140-400) Neutrophils (%) (Auto) 80 % (31-73) Lymphocytes (%) (Auto) 14 % (24-48) Monocytes (%) (Auto) 4 % (0-9) Eosinophils (%) (Auto) 2 % (0-3) Basophils (%) (Auto) 0 % (0-3) Neutrophils # (Auto) 10.0 x10^3uL (1.8-7.7) Lymphocytes # (Auto) 1.7 x10^3/uL (1.0-4.8) Monocytes # (Auto) 0.5 x10^3/uL (0.0-1.1) Eosinophils # (Auto) 0.2 x10^3/uL (0.0-0.7) Basophils # (Auto) 0.1 x10^3/uL (0.0-0.2) Sodium Level 143 mmol/L (136-145) Potassium Level 3.5 mmol/L (3.5-5.1) Chloride Level 108 mmol/L (98-107) Carbon Dioxide Level 24 mmol/L (21-32) Anion Gap 11 (6-14) Blood Urea Nitrogen 10 mg/dL (7-20) Creatinine 0.6 mg/dL (0.6-1.0) Estimated GFR (Cockcroft-Gault) 119.9 Glucose Level 89 mg/dL (70-99) Calcium Level 8.2 mg/dL (8.5-10.1) Microbiology Micro Microbiology 01/01/17 Blood Culture - Preliminary, Resulted NO GROWTH AFTER 1 DAY Physical Exam HEENT: Neck Supple W Full Motion Chest: Symmetric LUNGS: Clear to Auscultation Heart: S1S2, no murmurs, other (tele; ST rate 110-115) Abdomen: Other (incision well-approximated ) Extremities: Other (1+ bilateral LE edema ) Neurology: alert, oriented, follow commands Assessment Assessment 1. Acute systolic HF 2. cardiomyopathy; LVEF 40% 3. S/p delivery 4. Sinus tachycardia Recommendations Continue diuresis; convert to oral. Optimization therapy with MARIANO and lasix. Add ASA. Add BB given tachycardia Will reassess echo in 2 weeks on an outpatient basis. Will schedule and call notify patient of appointment time. MINISTERIO JAUREGUI APRN Jan 03, 2017 12:19
[2017-01-03] MEDS ORDERED: ASPIRIN ENTERIC COATED 81 MG TABLET.DR. PO SCH (14:30)
[2017-01-03] MEDS ORDERED: METOPROLOL SUCC 24HR ER 25 MG TAB.ER.24H. PO SCH (14:30)
[2017-01-03] MEDS ORDERED: LISINOPRIL 5 MG TABLET. PO SCH (14:30)
--- NOTE | 2017-01-03 14:59 | PDOC ---
PROGRESS NOTES Chief Complaint Chief Complaint 1. cardiomyopathy 2. SOB 2. Hypokalemia: 3.5 today 3. Hypomagnesemia: 2.0 today 4. S/p with wound vac in place 5. Leukocytosis: WBC 12.5 today History of Present Illness History of Present Illness pt is sitting comfortably in bed today, she states she is doing well and denies any complaints, she denies fever or chills Vitals Vitals Vital Signs Date Time Temp Pulse Resp B/P (MAP) Pulse Ox O2 Delivery O2 Flow Rate FiO2 01/03/17 11:00 98.5 98 18 136/89 (105) 97 Nasal Cannula 2.0 98.5 Physical Exam General: Alert, Oriented X3, Cooperative, No acute distress Heart: Regular rate, No murmurs Lungs: Clear, Other (no crackles or wheezes) Abdomen: Normal bowel sounds, Other ( abd with transverse , covered with wound vac) Extremities: No edema, Other (1+ b/l LE edema) Skin: No rashes, No breakdown Labs LABS Laboratory Tests Test 01/03/17 09:02 White Blood Count 12.5 x10^3/uL (4.0-11.0) Red Blood Count 4.05 x10^6/uL (3.50-5.40) Hemoglobin 9.4 g/dL (12.0-15.5) Hematocrit 29.1 % (36.0-47.0) Mean Corpuscular Volume 72 fL (79-100) Mean Corpuscular Hemoglobin 23 pg (25-35) Mean Corpuscular Hemoglobin Concent 32 g/dL (31-37) Red Cell Distribution Width 16.0 % (11.5-14.5) Platelet Count 415 x10^3/uL (140-400) Neutrophils (%) (Auto) 80 % (31-73) Lymphocytes (%) (Auto) 14 % (24-48) Monocytes (%) (Auto) 4 % (0-9) Eosinophils (%) (Auto) 2 % (0-3) Basophils (%) (Auto) 0 % (0-3) Neutrophils # (Auto) 10.0 x10^3uL (1.8-7.7) Lymphocytes # (Auto) 1.7 x10^3/uL (1.0-4.8) Monocytes # (Auto) 0.5 x10^3/uL (0.0-1.1) Eosinophils # (Auto) 0.2 x10^3/uL (0.0-0.7) Basophils # (Auto) 0.1 x10^3/uL (0.0-0.2) Sodium Level 143 mmol/L (136-145) Potassium Level 3.5 mmol/L (3.5-5.1) Chloride Level 108 mmol/L (98-107) Carbon Dioxide Level 24 mmol/L (21-32) Anion Gap 11 (6-14) Blood Urea Nitrogen 10 mg/dL (7-20) Creatinine 0.6 mg/dL (0.6-1.0) Estimated GFR (Cockcroft-Gault) 119.9 Glucose Level 89 mg/dL (70-99) Calcium Level 8.2 mg/dL (8.5-10.1) Magnesium Level 2.0 mg/dL (1.8-2.4) Review of Systems Review of Systems denies nausea, vomiting, diarrhea, or headache denies chest pain or SOB denies fever or chills Assessment and Plan Assessmemt and Plan Assessment: 1. cardiomyopathy 2. SOB 2. Hypokalemia: 3.5 today 3. Hypomagnesemia: 2.0 today 4. S/p with wound vac in place 5. Leukocytosis: WBC 12.5 today Plan: 1. Continue lasix, ASA, BB, and ACEi 2. Reviewed CTA and CXR, await echo 3. Appreciate cardiology and obstetrics subspecialty input 4. Recheck BMP and CBC tomorrow, follow Mg and K 5. Continue ceftriaxone given increasing WBC count with leukocytosis 6. Discussed plan of care with nursing 7. PT/OT Problems: Comment Review of Relevant I have reviewed the following items nita (where applicable) has been applied. Labs Laboratory Tests Test 01/01/17 17:25 01/01/17 17:50 01/01/17 20:00 01/01/17 22:30 Urine Collection Type Unknown Urine Color Bell Urine Clarity Cloudy Urine pH 6.5 Urine Specific [place] <=1.005 Urine Protein 100 mg/dL (NEG-TRACE) Urine Glucose (UA) Negative mg/dL (NEG) Urine Ketones (Stick) Negative mg/dL (NEG) Urine Blood Large (NEG) Urine Nitrite Negative (NEG) Urine Bilirubin Negative (NEG) Urine Urobilinogen Dipstick 0.2 mg/dL (0.2 mg/dL) Urine Leukocyte Esterase Large (NEG) Urine RBC 20-40 /HPF (0-2) Urine WBC Tntc /HPF (0-4) Urine Squamous Epithelial Cells Many /LPF Urine Bacteria Many /HPF (0-FEW) Urine Mucus Mod /LPF White Blood Count 9.5 x10^3/uL (4.0-11.0) Red Blood Count 3.50 x10^6/uL (3.50-5.40) Hemoglobin 8.2 g/dL (12.0-15.5) Hematocrit 25.0 % (36.0-47.0) Mean Corpuscular Volume 71 fL (79-100) Mean Corpuscular Hemoglobin 24 pg (25-35) Mean Corpuscular Hemoglobin Concent 33 g/dL (31-37) Red Cell Distribution Width 15.6 % (11.5-14.5) Platelet Count 333 x10^3/uL (140-400) Neutrophils (%) (Auto) 79 % (31-73) Lymphocytes (%) (Auto) 14 % (24-48) Monocytes (%) (Auto) 6 % (0-9) Eosinophils (%) (Auto) 1 % (0-3) Basophils (%) (Auto) 0 % (0-3) Neutrophils # (Auto) 7.5 x10^3uL (1.8-7.7) Lymphocytes # (Auto) 1.3 x10^3/uL (1.0-4.8) Monocytes # (Auto) 0.6 x10^3/uL (0.0-1.1) Eosinophils # (Auto) 0.1 x10^3/uL (0.0-0.7) Basophils # (Auto) 0.0 x10^3/uL (0.0-0.2) Platelet Estimate Adequate (ADEQUATE) Polychromasia Slight Hypochromasia Slight Anisocytosis Slight Microcytosis Marked Sodium Level 144 mmol/L (136-145) Potassium Level 3.4 mmol/L (3.5-5.1) Chloride Level 109 mmol/L (98-107) Carbon Dioxide Level 24 mmol/L (21-32) Anion Gap 11 (6-14) Blood Urea Nitrogen 10 mg/dL (7-20) Creatinine 0.6 mg/dL (0.6-1.0) Estimated GFR (Cockcroft-Gault) 119.9 BUN/Creatinine Ratio 17 (6-20) Glucose Level 85 mg/dL (70-99) Lactic Acid Level 1.0 mmol/L (0.4-2.0) 0.9 mmol/L (0.4-2.0) Calcium Level 8.1 mg/dL (8.5-10.1) Total Bilirubin 0.3 mg/dL (0.2-1.0) Aspartate Amino Transf (AST/SGOT) 22 U/L (15-37) Alanine Aminotransferase (ALT/SGPT) 16 U/L (14-59) Alkaline Phosphatase 95 U/L (46-116) Troponin I Quantitative 0.054 ng/mL (0.000-0.055) EG-Ojr-P-Type Natriuretic Peptide 599 pg/mL (0-124) Total Protein 6.7 g/dL (6.4-8.2) Albumin 2.6 g/dL (3.4-5.0) Albumin/Globulin Ratio 0.6 (1.0-1.7) Lipase 91 U/L (73-393) O2 Saturation 92 % (92-99) Arterial Blood pH 7.46 (7.35-7.45) Arterial Blood pCO2 at Patient Temp 31 mmHg (35-46) Arterial Blood pO2 at Patient Temp 68 mmHg (85-108) Arterial Blood HCO3 21 mmol/L (21-28) Arterial Blood Base Excess -2 mmol/L (-3-3) Test 01/02/17 07:50 01/03/17 09:02 White Blood Count 11.5 x10^3/uL (4.0-11.0) 12.5 x10^3/uL (4.0-11.0) Red Blood Count 3.56 x10^6/uL (3.50-5.40) 4.05 x10^6/uL (3.50-5.40) Hemoglobin 8.3 g/dL (12.0-15.5) 9.4 g/dL (12.0-15.5) Hematocrit 26.0 % (36.0-47.0) 29.1 % (36.0-47.0) Mean Corpuscular Volume 73 fL (79-100) 72 fL (79-100) Mean Corpuscular Hemoglobin 24 pg (25-35) 23 pg (25-35) Mean Corpuscular Hemoglobin Concent 32 g/dL (31-37) 32 g/dL (31-37) Red Cell Distribution Width 16.1 % (11.5-14.5) 16.0 % (11.5-14.5) Platelet Count 338 x10^3/uL (140-400) 415 x10^3/uL (140-400) Neutrophils (%) (Auto) 81 % (31-73) 80 % (31-73) Lymphocytes (%) (Auto) 13 % (24-48) 14 % (24-48) Monocytes (%) (Auto) 5 % (0-9) 4 % (0-9) Eosinophils (%) (Auto) 1 % (0-3) 2 % (0-3) Basophils (%) (Auto) 0 % (0-3) 0 % (0-3) Neutrophils # (Auto) 9.4 x10^3uL (1.8-7.7) 10.0 x10^3uL (1.8-7.7) Lymphocytes # (Auto) 1.5 x10^3/uL (1.0-4.8) 1.7 x10^3/uL (1.0-4.8) Monocytes # (Auto) 0.6 x10^3/uL (0.0-1.1) 0.5 x10^3/uL (0.0-1.1) Eosinophils # (Auto) 0.1 x10^3/uL (0.0-0.7) 0.2 x10^3/uL (0.0-0.7) Basophils # (Auto) 0.0 x10^3/uL (0.0-0.2) 0.1 x10^3/uL (0.0-0.2) Sodium Level 141 mmol/L (136-145) 143 mmol/L (136-145) Potassium Level 3.6 mmol/L (3.5-5.1) 3.5 mmol/L (3.5-5.1) Chloride Level 109 mmol/L (98-107) 108 mmol/L (98-107) Carbon Dioxide Level 25 mmol/L (21-32) 24 mmol/L (21-32) Anion Gap 7 (6-14) 11 (6-14) Blood Urea Nitrogen 11 mg/dL (7-20) 10 mg/dL (7-20) Creatinine 0.6 mg/dL (0.6-1.0) 0.6 mg/dL (0.6-1.0) Estimated GFR (Cockcroft-Gault) 119.9 119.9 Glucose Level 79 mg/dL (70-99) 89 mg/dL (70-99) Calcium Level 7.5 mg/dL (8.5-10.1) 8.2 mg/dL (8.5-10.1) Phosphorus Level 3.6 mg/dL (2.6-4.7) Magnesium Level 1.7 mg/dL (1.8-2.4) 2.0 mg/dL (1.8-2.4) Troponin I Quantitative 0.060 ng/mL (0.000-0.055) Laboratory Tests Test 01/03/17 09:02 White Blood Count 12.5 x10^3/uL (4.0-11.0) Red Blood Count 4.05 x10^6/uL (3.50-5.40) Hemoglobin 9.4 g/dL (12.0-15.5) Hematocrit 29.1 % (36.0-47.0) Mean Corpuscular Volume 72 fL (79-100) Mean Corpuscular Hemoglobin 23 pg (25-35) Mean Corpuscular Hemoglobin Concent 32 g/dL (31-37) Red Cell Distribution Width 16.0 % (11.5-14.5) Platelet Count 415 x10^3/uL (140-400) Neutrophils (%) (Auto) 80 % (31-73) Lymphocytes (%) (Auto) 14 % (24-48) Monocytes (%) (Auto) 4 % (0-9) Eosinophils (%) (Auto) 2 % (0-3) Basophils (%) (Auto) 0 % (0-3) Neutrophils # (Auto) 10.0 x10^3uL (1.8-7.7) Lymphocytes # (Auto) 1.7 x10^3/uL (1.0-4.8) Monocytes # (Auto) 0.5 x10^3/uL (0.0-1.1) Eosinophils # (Auto) 0.2 x10^3/uL (0.0-0.7) Basophils # (Auto) 0.1 x10^3/uL (0.0-0.2) Sodium Level 143 mmol/L (136-145) Potassium Level 3.5 mmol/L (3.5-5.1) Chloride Level 108 mmol/L (98-107) Carbon Dioxide Level 24 mmol/L (21-32) Anion Gap 11 (6-14) Blood Urea Nitrogen 10 mg/dL (7-20) Creatinine 0.6 mg/dL (0.6-1.0) Estimated GFR (Cockcroft-Gault) 119.9 Glucose Level 89 mg/dL (70-99) Calcium Level 8.2 mg/dL (8.5-10.1) Magnesium Level 2.0 mg/dL (1.8-2.4) Microbiology 01/01/17 Blood Culture - Preliminary, Resulted NO GROWTH AFTER 1 DAY 01/01/17 Urine Culture - Final, Complete 01/01/17 Urine Culture Result 1 (ALEXIS) - Final, Complete Medications Current Medications Iohexol (Omnipaque 300 Mg/ml) 75 ml 1X ONCE IV Last administered on 01/01/17 18:15; Start 01/01/17 at 18:00; Stop 01/01/17 at 18:02; Status DC Info (Do NOT chart on this entry -- for MONITORING) 1 each PRN DAILY PRN MC SEE COMMENTS; Start 01/01/17 at 18:15; Stop 01/03/17 at 18:14 Ceftriaxone Sodium 1 gm/ Sodium Chloride 50 ml @ 100 mls/hr Q24H IV ; Start 01/01/17 at 19:45; Status Cancel Azithromycin 250 ml @ 250 mls/hr 1X ONCE IV Last administered on 01/02/17 00: 54; Start 01/01/17 at 19:45; Stop 01/01/17 at 20:44; Status DC Ceftriaxone Sodium 1 gm/ Sodium Chloride 50 ml @ 100 mls/hr Q24H IV Last administered on 01/02/17 18:27; Start 01/02/17 at 18:00 Ceftriaxone Sodium 50 ml @ 100 mls/hr 1X ONCE IV Last administered on 20:38; Start 01/01/17 at 19:45; Stop 01/01/17 at 20:14; Status DC Ondansetron HCl (Zofran) 4 mg PRN Q8HRS PRN IV NAUSEA/VOMITING; Start 01/01/17 at 20:00; Stop 01/02/17 at 19:59; Status DC Morphine Sulfate 4 mg PRN Q2HR PRN IV PAIN; Start 01/01/17 at 20:00; Stop at 19:59; Status DC Furosemide (Lasix) 40 mg 1X ONCE IVP Last administered on 01/01/17 20:41; Start 01/01/17 at 20:00; Stop 01/01/17 at 20:03; Status DC Potassium Chloride (Klor-Con) 40 meq 1X ONCE PO Last administered on 01/02/17 00:54; Start 01/02/17 at 00:15; Stop 01/02/17 at 00:16; Status DC Potassium Chloride 100 ml @ 100 mls/hr Q1H IV ; Start 01/02/17 at 00:30; Stop at 00:41; Status DC Magnesium Sulfate/ Dextrose 50 ml @ 25 mls/hr Q24H IV ; Start 01/02/17 at 00:30; Stop 01/02/17 at 00:46; Status DC Potassium Phos/ Sodium Phos (Phos-Nak) 1 pkt BID PO ; Start 01/02/17 at 09:00; Stop 01/02/17 at 17:29; Status DC Magnesium Sulfate/ Dextrose 50 ml @ 25 mls/hr Q24H IV Last administered on 12:36; Start 01/02/17 at 09:00; Stop 01/02/17 at 17:29; Status DC Furosemide (Lasix) 20 mg BID92 IVP Last administered on 01/03/17 08:41; Start 01/02/17 at 15:00; Stop 01/03/17 at 13:41; Status DC Potassium Chloride (Klor-Con) 40 meq BIDWMEALS PO Last administered on 08:40; Start 01/02/17 at 17:00; Stop 01/03/17 at 13:41; Status DC Oxycodone/ Acetaminophen (Percocet 5/325) 1 tab PRN Q4HRS PRN PO PAIN Last administered on 01/03/17 08:46; Start 01/02/17 at 15:00 Enoxaparin Sodium (Lovenox 40mg Syringe) 40 mg Q24H SQ Last administered on 01/03 10:37; Start 01/03/17 at 09:00 Furosemide (Lasix) 40 mg DAILY PO ; Start 01/04/17 at 09:00 Potassium Chloride (Klor-Con) 20 meq DAILYWBKFT PO ; Start 01/04/17 at 08:00 Metoprolol Succinate (Toprol Xl) 12.5 mg DAILY PO ; Start 01/03/17 at 14:30 Lisinopril (Prinivil) 5 mg DAILY PO ; Start 01/03/17 at 14:30 Aspirin (Ecotrin) 81 mg DAILYWBKFT PO ; Start 01/03/17 at 14:30 Active Scripts Active Colace (Docusate Sodium) 100 Mg Capsule 1 Cap PO BID Percocet 5-325 Mg Tablet (Oxycodone/Acetaminophen) 1 Each Tablet 1-2 Tab PO Q4- 6HRS Naprosyn (Naproxen) 500 Mg Tablet 1 Tab PO BID Vitals/I & O Vital Sign - Last 24 Hours 01/02/17 01/02/17 01/02/17 01/02/17 15:00 15:29 19:15 19:45 Temp 98.3 98.6 98.3 98.6 Pulse 101 104 Resp 18 18 16 20 B/P (MAP) 146/94 (111) 132/88 (103) Pulse Ox 93 97 96 O2 Delivery Nasal Cannula Nasal Cannula Nasal Cannula Room Air O2 Flow Rate 2.0 2.0 2.0 01/02/17 01/03/17 01/03/17 01/03/17 22:57 02:48 07:00 08:17 Temp 98.8 98.2 98.4 98.8 98.2 98.4 Pulse 85 89 86 Resp 18 16 18 B/P (MAP) 130/84 (99) 141/93 (109) 153/90 (111) Pulse Ox 99 97 99 O2 Delivery Nasal Cannula Nasal Cannula Nasal Cannula Nasal Cannula O2 Flow Rate 2.0 2.0 2.0 2.0 01/03/17 01/03/17 01/03/17 08:46 09:50 11:00 Temp 98.5 98.5 Pulse 98 Resp 18 20 18 B/P (MAP) 136/89 (105) Pulse Ox 99 99 97 O2 Delivery Nasal Cannula Nasal Cannula Nasal Cannula O2 Flow Rate 2.0 2.0 2.0 Intake and Output 01/02/17 01/02/17 01/03/17 15:00 23:00 07:00 Intake Total 1160 ml 600 ml Output Total 3 ml Balance 1157 ml 600 ml WINSOME MEJIA III DO Jan 03, 2017 14:59
[2017-01-03 15:00] VITALS: BP 135/90
[2017-01-03] MEDS ORDERED: LISI-338 PO (17:39)
[2017-01-03] MEDS ORDERED: ASPI-482 PO (17:40)
[2017-01-03] MEDS ORDERED: METO25TA9 PO ×2 (17:40→17:47)
[2017-01-03] MEDS ORDERED: POTA20TA82 PO (17:44)
[2017-01-03] MEDS ORDERED: FURO-68 PO (17:44)
[2017-01-04] MEDS ORDERED: POTASSIUM CHLORIDE 20 MEQ TABLET.ER. PO SCH (08:00)
[2017-01-04] MEDS ORDERED: FUROSEMIDE 40 MG TABLET. PO SCH (09:00)
== END 2017-01-03 18:40 | disposition home or self-care (01) | DRG 776 ==
LOC: ER 17:14 → 2 NORTH 19:38
PROVIDERS: ADMIT Internal Medicine Hematology & Oncology; ATTEND Internal Medicine Hematology & Oncology
DX: O89.1 Cardiac complications of anesthesia during the puerperium (principal); O90.3 Peripartum cardiomyopathy; I50.21 Acute systolic (congestive) heart failure; D72.829 Elevated white blood cell count, unspecified; E87.6 Hypokalemia; E83.42 Hypomagnesemia; I11.0 Hypertensive heart disease with heart failure; O90.89 Other complications of the puerperium, not elsewhere classified; Z82.49 Family history of ischemic heart disease and other diseases of the circulatory system
CPT/HCPCS: 36415; 36600; 71010; 71275; 80048; 80053; 81001; 82805; 83605; 83690; 83735; 83880; 84100; 84484; 85007; 85027; 87040; 87086; 93005; 93306; 94660; 96374; 96375; J0456; J0690; J0696; J1650; J1940; J7060; Q9967; 99291-25

== ENCOUNTER → 2017-02-04 | Outpatient (CLI) | payer OTHER ==
[~2017-02-04] MED LIST changes: +ASPI-482 PO; +FURO-68 PO; +LISI-338 PO; +METO25TA9 PO; +POTA20TA82 PO
--- NOTE | 2017-02-04 14:14 | CARD ---
APPROVED REPORT EXAM: Two-dimensional and M-mode echocardiogram with Doppler and color Doppler. Other Information Quality : Good INDICATION Cardiomyopathy 2D DIMENSIONS RVDd3.2 (2.9-3.5cm)Left Atrium(2D)4.2 (1.6-4.0cm) IVSd0.8 (0.7-1.1cm)Aortic Root(2D)3.0 (2.0-3.7cm) LVDd6.1 (3.9-5.9cm)LVOT Diameter2.3 (1.8-2.4cm) PWd0.7 (0.7-1.1cm)LVDs4.7 (2.5-4.0cm) FS (%) 21.9 %SV80.1 ml LVEF(%)43.5 (>50%) Aortic Valve AoV Peak Brenden.129.6cm/sAoV VTI27.5cm AO Peak GR.6.7mmHgLVOT Peak Brenden.115.9cm/s LVOT VTI 25.99cmAO Mean GR.4mmHg KAITLYNN (VMAX)3.25vr2WVF (VTI)4.02cm2 AI P 1/2 [id number] Mitral Valve MV E Hrudyonz710.2cm/sMV DECEL [id number] MV A Apkxqsbo50.6cm/sMV [id number] E/A Ratio2.7MVA (PHT)3.61cm2 TDI E/Medial E'12.3 Tricuspid Valve TR P. [id number]/sRAP [id number] TR Peak Gr.31qtPxAVXC34iaCm Pulmonary Vein S1 Spvlrjzp52.2cm/sD2 Jhlqhtrh20.6cm/s PVa [id number] LEFT VENTRICLE The Left Ventricle is mildly dilated. There is normal left ventricular wall thickness. Left ventricle systolic function is mildly impaired. The Ejection Fraction is 40-45%. There is mild global hypokine sis of the left ventricle. Transmitral Doppler flow pattern is Grade I-abnormal relaxation pattern. RIGHT VENTRICLE The right ventricle is normal size. The right ventricular systolic function is normal. ATRIA The left atrium is mildly dilated. The right atrium size is normal. The interatrial septum is intact with no evidence for an atrial septal defect or patent foramen ovale as noted on 2-D or Doppler imagi ng. AORTIC VALVE The aortic valve is normal in structure and function. Doppler and Color Flow revealed mild aortic reg urgitation. There is no significant aortic valvular stenosis. MITRAL VALVE The mitral valve is normal in structure and function. There is no evidence of mitral valve prolapse. There is no mitral valve stenosis. Doppler and Color-flow revealed mild mitral regurgitation. TRICUSPID VALVE The tricuspid valve is normal in structure and function. Doppler and Color Flow revealed mild tricusp id regurgitation. There is mild pulmonary hypertension. The PA pressure was estimated at 30 mmHg. The re is no tricuspid valve stenosis. PULMONIC VALVE The pulmonary valve is normal in structure and function. Doppler and Color Flow revealed mild pulmoni c valvular regurgitation. There is no pulmonic valvular stenosis. GREAT VESSELS The aortic root is normal in size. The ascending aorta is normal in size. The IVC is normal in size a nd collapses >50% with inspiration. PERICARDIAL EFFUSION There is no evidence of significant pericardial effusion. Critical Notification Critical Value: No <Conclusion> Left ventricle systolic function is mildly impaired. The Ejection Fraction is 40-45%. Mild aortic regurgitation. Mild mitral regurgitation. Mild tricuspid regurgitation. The PA pressure was estimated at 30 mmHg. There is no evidence of significant pericardial effusion.
== END | disposition home or self-care (01) ==
LOC: ECHO 10:08
PROVIDERS: ATTEND Internal Medicine Cardiovascular Disease
DX: I08.3 Combined rheumatic disorders of mitral, aortic and tricuspid valves (principal)
CPT/HCPCS: 93306

== ENCOUNTER → 2017-02-14 | Outpatient (CLI) | payer OTHER ==
[2017-02-14 16:36] LABS: % SAT IRON 4 % (15-34); IRON,SERUM 16 ug/dL (50-170)
[2017-02-14 16:46] LABS: ALBUMIN 3.4 g/dL (3.4-5.0); ALBUMIN/GLOBULIN RATIO 0.8 (1.0-1.7); CALCIUM 8.3 mg/dL (8.5-10.1); CREATININE 0.6 mg/dL (0.6-1.0); GFR 119.9; POTASSIUM 3.7 mmol/L (3.5-5.1); TOTAL BILIRUBIN 0.3 mg/dL (0.2-1.0); TOTAL PROTEIN 7.5 g/dL (6.4-8.2)
== END | disposition home or self-care (01) ==
LOC: LAB 15:28
PROVIDERS: ATTEND Internal Medicine Cardiovascular Disease
DX: I42.9 Cardiomyopathy, unspecified (principal)
CPT/HCPCS: 36415; 80053; 82728; 83540; 83550; 84443

== ENCOUNTER → 2017-05-18 | Outpatient (CLI) | payer OTHER ==
[~2017-05-18] MED LIST changes: +METO-239 PO; -METO25TA9 PO
--- NOTE | 2017-05-18 11:49 | RAD ---
Radionuclide MUGA scan, 05/18/2017: History: Cardiomyopathy The study was performed utilizing 20 mCi of technetium 99m and a labeled red blood cell technique. The left ventricular ejection fraction was calculated at 49.8%. No focal dyskinetic or akinetic left ventricular segment is seen. IMPRESSION: Mildly decreased left ventricular ejection fraction of 49.8%.
== END | disposition home or self-care (01) ==
LOC: NM 08:20
PROVIDERS: ATTEND Internal Medicine Cardiovascular Disease
DX: I42.9 Cardiomyopathy, unspecified (principal)
CPT/HCPCS: 78472; 96374; A9512

== ENCOUNTER → 2017-05-20 | Outpatient (CLI) | payer OTHER ==
[~2017-05-20] MED LIST changes: +NAPR-683 PO; -NAPR500T PO
[2017-05-20 17:09] LABS: FREE T4 > 8.00 ng/dL (0.76-1.46)
== END | disposition home or self-care (01) ==
LOC: LAB 15:39
PROVIDERS: ATTEND Internal Medicine Cardiovascular Disease
DX: R00.0 Tachycardia, unspecified (principal)
CPT/HCPCS: 36415; 84439; 84443